=== PATIENT | female | born 1955 | race Caucasian/White ===

== ENCOUNTER → 2018-12-20 07:56 | Outpatient (CLI) | payer OTHER, SELFPAY ==
--- NOTE | 2018-12-20 08:00 | BI_ITS ---
MAMMOGRAPHY - BILATERAL SCREENING 3-D TOMOSYNTHESIS REASON FOR EXAM: Female, 63 years old. PERTINENT HISTORY: No significant family history. TECHNIQUE: 2-D mammograms and 3-D Tomosynthesis of the breast (s) were performed. CAD was performed. COMPARISON: None. FINDINGS: The breast composition is heterogeneously dense Scattered benign calcifications are seen. No dense spiculated masses or suspicious microcalcifications are identified. No architectural distortion is identified. There is no skin thickening or retraction. There has been no significant change since the prior study. BI/SCREEN MAMM (CAD) W/STANLEY BILAT IMPRESSION: No mammographic signs of malignancy. Routine yearly mammograms recommended. ASSESSMENT CATEGORY: BIRADS Category 1: Negative. A letter regarding these results will be sent to the patient by the facility within 30 days. FOLLOW UP RECOMMENDATION: Yearly follow up mammogram recommended. (A) Approximately 10% of breast cancers are not detected by mammography. A normal mammogram should not delay biopsy of a clinically suspicious abnormality. Electronically Signed: Hayden Bryan, at 9:37 EDT Tel , Service support ,
== END ==
PROVIDERS: Family Provider Nurse Practitioner; PCP Nurse Practitioner; Referring Provider Nurse Practitioner; Visit Provider Nurse Practitioner
DX: Z12.31 Encounter for screening mammogram for malignant neoplasm of breast (principal)
CPT/HCPCS: 77063; 77067

== ENCOUNTER 2019-05-16 13:00 | Outpatient (RCR) | payer OTHER, SELFPAY ==
--- NOTE | 2019-04-23 13:10 | HP.PTEVAL ---
Patient's Visit Information ASAF TAVAREZ is a 63 year old F referred to Physical Therapy by FARNAZ Kidd with a diagnosis of dizzyness. Date of Evaluation: 04/23/19 Physical Therapist: Ad Hinton DPT, OCS, CSCS - Visit Plan Frequency: 1-2x /Week Duration: 2-4 Weeks Plan: 1-2x/week as needed for 2-4 for ... positional treatment adn monitor need for further vertigo intervention. Pt unable to tolerate positioins for Mihir today, taught BD to be done at home adn educated on getting meds per doctor order and taking it and sitting with head stilla nd much proprioceptive neck adn head input still until felt better then try BD 8 reps daily to tolerance. Also taught R mihir. - Subjective Findings: 3 weeks ago was at [employer] bending down adn got some spinning and near passed out. Then 2 weeks went by and was fine and now it is happening more often. Spinning and it is brief. Went to doctor office Tuesday and had positive BPPV test. Gave head movement exercises. Now is on edge alot waiting for it to happe. Happened this morning again spinning after looking out window. Now feels dizzy(lightheaded). Tried self treatment this morning adn vomitted and went to doctor. Checked out next door with blood tests and has been given meclizine. Supposed to be going on airplane tomorrow to help family. 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 doesn't happen lying down. Sleep is normal. Basic ADLs are going OK when feeling good. - Objective Walks with husbands help back to PT feeling nauseous today. FGA performed. C/s AROM WFL but hesitant to move. - L hallpike sarahy. Dizzy with R halpike and would not stay in poisiton due to nausea and need to vomit. Tried several times but unable to maintain, several issues of vomitting. Walked out with husbands help today. - Balance Scores Functional Gait Assessment Score: 22 % Disability: 26.6700 - Goals Goal 1:: Abolish vertigo adn nausea Goal Time Frame: 2-4 Weeks Goal 2:: FGA Goal Time Frame: 2-4 Weeks Goal 3:: Pt feel 99% better. Goal Time Frame: 2-4 Weeks - Rehabilitation Potential Physical Therapy Diagnosis: vertigo , likely positional based on patient report, HD and reports of patient from doctor testing. Rehabilitation Potential: Fair - Anticipated Interventions Patient/Client Instruction: Educate patient on: Condition, Plan of Care For the Purpose of:: To increase tolerance to activity/condition/position Comment: positional For the Purpose of:: To increase tolerance to activity/condition/position Thank you for the opportunity to evaluate your patient. For Medicare and Medicare HMO plans, please review the plan of care and approve it. It will need to be FAXED BACK to us at [phone] for Medicare purposes. For Medicare only, by signing this I certify the plan of care. Please let me know if there are questions or concerns regarding this plan of care. Physician Signature: Date:
--- NOTE | 2019-05-02 15:14 | HP.PTREVAL_ITS ---
Alondra Smalls, SAFETY PIN ASSEMBLING MACHINE OPERATOR-C, It has been my pleasure to treat ASAF TAVAREZ over the last 3 visits for dizzyness. Please see the progress note below for an update on the physical therapy plan of care! Subjective: Up and down with steadiness. Is not taking much meclizine. Feels pretty good unless she moves. Has trouble at night with balance. Was bad in [place] with lots of colors the other day. Objective/Function: MSQ no problems. - B hallpike, - roll test. Oculomotor is unremarkable except unsteady with VOR in walking nearly impossible. No dizzyness but unsteady in certain situation foam and ec. Plan Plan: Pt to do HEP and f/u next week. Would beenfit form being off work another week. Pt to call doctor and request note. Goals Goal 1:: Abolish vertigo adn nausea Goal Time Frame: 2-4 Weeks Goal 2:: 30/30 FGA Goal Time Frame: 2-4 Weeks Goal 3:: Pt feel 99% better. Goal Time Frame: 2-4 Weeks Anticipated Interventions Patient/Client Instruction: Educate patient on: Condition, Plan of Care For the Purpose of:: To increase tolerance to activity/condition/position Comment: positional For the Purpose of:: To increase tolerance to activity/condition/position Please do not hesitate to contact me at [phone] by phone or if you have questions or concerns regarding this new plan of care! Sincerely, Ad Hinton, DPT, OCS, CSCS
--- NOTE | 2019-05-16 13:25 | HP.PTREVAL_ITS ---
Alondra Smalls, NURSING EDUCATION CONSULTANT-C, It has been my pleasure to treat ASAF TAVAREZ over the last 5 visits for dizzyness. Please see the progress note below for an update on the physical therapy plan of care! Subjective: Has a cold and not sleeping well. Tired. Feels much about the same with unbalanced feeling but drove for the first time yesterday. Is pretty good sitting. No spinning. No problem sitting. Getting up and down quicker. Picking baby up and down without issues. Still doesn't feel perfectly steady intermittently. Doing exercises at home best she can. Walking vOR not perfect. Objective/Function: Gets out of chair easily and walks without issues today. Moving much better adn without balance issues today, more confident with movement but not mentally. Foam stance 5 seconds ec adn 30 sec eo. Plan Plan: f/u one more visit to check foam stance, subjective adn vor walking. Pt likely safe at this point to return to work, recommend sshe walk on sidewalk with focus and can start half days if conveninet for work. She will stop at doctor office to get note. Goals Goal 1:: Abolish vertigo adn nausea Goal Time Frame: 2-4 Weeks Goal Progress: Goal Met Goal 2:: 30/30 FGA Goal Time Frame: 2-4 Weeks Goal Progress: Progressing Goal 3:: Pt feel 99% better. Goal Time Frame: 2-4 Weeks Goal Progress: Progressing Anticipated Interventions Patient/Client Instruction: Educate patient on: Condition, Plan of Care For the Purpose of:: To increase tolerance to activity/condition/position Comment: positional For the Purpose of:: To increase tolerance to activity/condition/position Please do not hesitate to contact me at [phone] by phone or if you have questions or concerns regarding this new plan of care! Sincerely, Ad Hinton, DPT, OCS, CSCS
--- NOTE | 2019-07-09 08:39 | HP.PT.NRP ---
ASAF TAVAREZ was seen in my office for initial evaluation on 04/23/19. The following Plan of Care was established for this patient: Initial Frequency: 1-2x /Week Initial Duration: 2-4 Weeks Patient/Client Instruction: Educate patient on: Condition, Plan of Care For the Purpose of:: To increase tolerance to activity/condition/position For the Purpose of:: To increase tolerance to activity/condition/position This patient was last seen in our office 05/16/19. Pertinent comments regarding their Physical therapy will appear below: Pt seen 5 visits of vestibular therapy and was 91% better. She was to f/u in Mid May but cancelled. At this point, I will discontinue her form my care due to nonattendance as it has been over 6 weeks. At this point I will be discontinuing this patient from physical therapy. I would be happy to see this patient again in the future if found appropriate by the physician. Thank you! Ad Hinton, DPT, OCS, CSCS
== END 2019-05-16 19:00 | disposition home or self-care (01) ==
LOC: PT 13:00
PROVIDERS: PCP Nurse Practitioner; Referring Provider Nurse Practitioner Gerontology; Visit Provider Nurse Practitioner Gerontology
DX: R42 Dizziness and giddiness (principal)
CPT/HCPCS: 97161; 97530